=== PATIENT | male | born 1970 | race Caucasian/White ===

== ENCOUNTER 2017-02-18 19:38 | Emergency (ER) | payer OTHER ==
[~2017-02-18] VITALS: Ht 175.3 cm; Wt 85.0 kg
[2017-02-18 19:40] VITALS: Ht 175.3 cm; Wt 85.0 kg
[2017-02-18 20:40] LABS: BASOPHILS % 0.6 % (0.0-2.0); EOSINOPHILS # 0.1 10^3/ul (0.0-0.5); EOSINOPHILS % 2.1 % (0.0-7.0); HEMATOCRIT 40.2 % (42.0-52.0); HEMOGLOBIN 13.7 g/dl (14.0-18.0); LYMPHOCYTES % 30.7 % (15.0-51.0); MEAN CORPUSCULAR HEMOGLOBIN 30.6 pg (29.0-33.0); MEAN CORPUSCULAR HGB CONC 34.1 g/dl (32.0-37.0); MEAN CORPUSCULAR VOLUME 89.7 fl (82.0-101.0); MEAN PLATELET VOLUME 10.4 fl (7.4-10.4); MONOCYTE # 0.7 10^3/ul (0.3-0.9); MONOCYTES % 11.2 % (0.0-11.0); NEUTROPHIL # 3.6 10^3/ul (1.6-7.5); NEUTROPHILS % 54.8 % (39.0-77.0); PLATELET COUNT 203 10^3/UL (140-415); RED BLOOD COUNT 4.48 10^6/ul (4.70-6.10); RED CELL DISTRIBUTION WIDTH 12.3 % (11.5-14.5); WHITE BLOOD COUNT 6.5 10^3/ul (4.8-10.8)
[2017-02-18 20:56] LABS: ALANINE AMINOTRANSFERASE 27 IU/L (13-69); ALBUMIN 4.8 g/dl (3.3-4.9); ALBUMIN/GLOBULIN RATIO 2.18; ALKALINE PHOSPHATASE 61 IU/L (42-121); ANION GAP 13 (8-16); ASPARTATE AMINO TRANSFERASE 17 IU/L (15-46); BILIRUBIN,INDIRECT 0.2 mg/dl (0-1.1); BILIRUBIN,TOTAL 0.2 mg/dl (0.2-1.3); BLOOD UREA NITROGEN 18 mg/dl (7-20); CALCIUM 9.3 mg/dl (8.4-10.2); CARBON DIOXIDE 26 mmol/L (21-31); CHLORIDE 103 mmol/L (97-110); CREATININE 0.93 mg/dl (0.61-1.24); GLUCOSE 118 mg/dl (70-220); POTASSIUM 3.8 mmol/L (3.5-5.1); SODIUM 138 mmol/L (135-144)
[2017-02-18 20:58] LABS: ACETAMINOPHEN < 10.0 ug/ml (10.0-30.0); ETHANOL < 10.0 mg/dl; SALICYLATE < 1.0 mg/dl (5.0-30.0)
--- NOTE | 2017-02-18 21:00 | PSY ---
Date/Time of Note Date/Time of Note DATE: 02/18/17 TIME: 20:52 Psychiatric Subjective Eval Consent Pt consented to telemedicine: Yes Subjective Evaluation Patient location: emergency Chief Complaint: pt was attempting to jump off a 3rd story ledge when [employer] intervened Reason for consult: suicide attempt History of present illness Pt reports that he is anxious about potentially losing his housing in March. He attempted to jump off a ledge but was stopped by the police. He reports family have abandoned him, he only has one friend, he is very scared about the possibility of being homeless. Patient reports frequent hospitalizations. He reports paranoia/social phobia. He worries that people are laughing at him. He denies hallucinations. Patient does not feel safe out of the hospital. Past psychiatric history As noted above. Unclear diagnosis. However, he is on SSI Hospitalization: Suicidal Attempt(s) Family History Denies Medical history Denies Substance Abuse Substance use: No known substance abuse Social History Marital status: single Level of education: N/A DPA/Conservatorship: No Occupation/[facility]: Disabled Psychiatric Objective Eval Mental Status Examination: Appearance: Groomed Eye Contact: Poor Psychomotor Activity: Normal Behavior: Cooperative AFFECT: Anxious Mood: Anxious Though Process: Linear Thought Content: Normal Suicidal: Yes Homicidal: No On 72 hour hold: No Orientation: x4 Cognition: Alert Insight: Impared Judgement: Impared Laboratory Results Laboratory Tests Test 02/18/17 20:15 White Blood Count 6.510^3/ul Red Blood Count 4.4810^6/ul Hemoglobin 13.7g/dl Hematocrit 40.2% Mean Corpuscular Volume 89.7fl Mean Corpuscular Hemoglobin 30.6pg Mean Corpuscular Hemoglobin Concent 34.1g/dl Red Cell Distribution Width 12.3% Platelet Count 76373^3/UL Mean Platelet Volume 10.4fl Neutrophils % 54.8% Lymphocytes % 30.7% Monocytes % 11.2% Eosinophils % 2.1% Basophils % 0.6% Nucleated Red Blood Cells % 0.0/100WBC Neutrophils # 3.610^3/ul Lymphocytes # 2.010^3/ul Monocytes # 0.710^3/ul Eosinophils # 0.110^3/ul Basophils # 0.010^3/ul Nucleated Red Blood Cells # 0.010^3/ul Assessment and Plan Assessment/Diagnosis [place] [facility]: Unspecified Anxiety Disorder, Social Anxiety Disorder. Patient has a autistic spectrum disorder like presentation. This may be part of a psychotic disorder, high functioning autism, or severe anxiety. Likely combination of last two but difficult to tell in ER visit. He castrophizes - worried about homelessness in 2 months leads to jumping off a ledge. However, it may also be the only way he can get care. Recommendation/Plan Medication Management Can use Ativan 1mg for anxiety He appears anxious in the ER. Might help him calm. Consider 5mg of zyprexa if he is willing. Psychotherapy Support. Needs reassurance that he is going to taken care of. Pt. Caregiver/Family Education N/A Follow-up/Disposition 5150 and transfer to inpatient psychiatry. He will need psych social worker support to address his housing issue as he does not appear competent to do this by himself. 5152 Recommendation: Srini MCNEILEKATERINA Feb 18, 2017 21:00
[2017-02-18 21:25] LABS: ADD UMIC NO; UR ASCORBIC ACID NEGATIVE (NEGATIVE); UR BACTERIA FEW /HPF (NONE SEEN); UR BILIRUBIN (Dip) NEGATIVE (NEGATIVE); UR BLOOD (Dip) NEGATIVE (NEGATIVE); UR CLARITY SLIGHTLY CLOUDY (CLEAR); UR COLOR YELLOW (YELLOW); UR GLUCOSE (Dip) 1+ mg/dL (NEGATIVE); UR KETONES (Dip) NEGATIVE (NEGATIVE); UR LEUKOCYTE ESTERASE (Dip) NEGATIVE Leu/ul (NEGATIVE); UR MUCUS FEW /HPF (NONE SEEN); UR NITRITE (Dip) NEGATIVE (NEGATIVE); UR RBC 2 /HPF (0-5); UR SPECIFIC GRAVITY (Dip) 1.015 (1.003-1.030); UR TOTAL PROTEIN (Dip) NEGATIVE (NEGATIVE); UR UROBILINOGEN (Dip) NEGATIVE (NEGATIVE)
--- NOTE | 2017-02-18 21:26 | ERA ---
ER Documentation Chief Complaint Date/Time DATE: 02/18/17 TIME: 21:24 Chief Complaint pt was attempting to jump off a 3rd story ledge when [employer] intervened HPI Patient is a 46-year-old male with depression and prediabetes who presents with suicidal ideation. He was brought in by ambulance and police. The police had to stop him from jumping off of a 3 story building. He was getting ready to jump and feels depressed. He is concerned because he is at risk of being homeless. He says "I have no help". The patient says that he is on his own and has no car. He did see his psychiatrist yesterday. Upon review of old medical records this is the patient's first visit to the ER. ROS All systems reviewed and are negative except as per history of present illness. Allergies Allergies: Coded Allergies: No Known Allergy (Unverified , 02/18/17) PMhx/Soc Medical and Surgical Hx: pt denies Surgical Hx History of Surgery: No Anesthesia Reaction: No Hx Neurological Disorder: No Hx Respiratory Disorders: No Hx Cardiac Disorders: No Hx Psychiatric Problems: Yes (depression) Hx Miscellaneous Medical Probl: No Hx Alcohol Use: Yes Hx Substance Use: Yes Hx Tobacco Use: Yes Smoking Status: Current every day smoker FmHx Family History: diabetes Physical Exam Vitals Vital Signs Date Time Temp Pulse Resp B/P Pulse Ox O2 Delivery O2 Flow Rate FiO2 02/18/17 19:40 97.9 108 19 131/90 97 Physical Exam Const: Depressed affect with moderate distress Head: Atraumatic Eyes: Normal Conjunctiva ENT: Normal External Ears, Nose and Mouth. Neck: Full range of motion..~ No meningismus. Resp: Clear to auscultation bilaterally Cardio: Regular rate and rhythm, no murmurs Abd: Soft, non tender, non distended. Normal bowel sounds Skin: No petechiae or rashes Back: No midline or flank tenderness Ext: No cyanosis, or edema Neur: Awake and alert Psych: Depressed affect with positive suicidal ideation with plan to jump off of a building Result Diagram: 02/18/17201402/18/172014 Results 24 hrs Laboratory Tests Test 02/18/17 20:15 White Blood Count 6.510^3/ul Red Blood Count 4.4810^6/ul Hemoglobin 13.7g/dl Hematocrit 40.2% Mean Corpuscular Volume 89.7fl Mean Corpuscular Hemoglobin 30.6pg Mean Corpuscular Hemoglobin Concent 34.1g/dl Red Cell Distribution Width 12.3% Platelet Count 04846^3/UL Mean Platelet Volume 10.4fl Neutrophils % 54.8% Lymphocytes % 30.7% Monocytes % 11.2% Eosinophils % 2.1% Basophils % 0.6% Nucleated Red Blood Cells % 0.0/100WBC Neutrophils # 3.610^3/ul Lymphocytes # 2.010^3/ul Monocytes # 0.710^3/ul Eosinophils # 0.110^3/ul Basophils # 0.010^3/ul Nucleated Red Blood Cells # 0.010^3/ul Sodium Level 138mmol/L Potassium Level 3.8mmol/L Chloride Level 103mmol/L Carbon Dioxide Level 26mmol/L Anion Gap 13 Blood Urea Nitrogen 18mg/dl Creatinine 0.93mg/dl Glucose Level 118mg/dl Calcium Level 9.3mg/dl Total Bilirubin 0.2mg/dl Direct Bilirubin 0.00mg/dl Indirect Bilirubin 0.2mg/dl Aspartate Amino Transf (AST/SGOT) 17IU/L Alanine Aminotransferase (ALT/SGPT) 27IU/L Alkaline Phosphatase 61IU/L Total Protein 7.0g/dl Albumin 4.8g/dl Globulin 2.20g/dl Albumin/Globulin Ratio 2.18 Salicylates Level < 1.0mg/dl Acetaminophen Level < 10.0ug/ml Ethyl Alcohol Level < 10.0mg/dl Current Medications Medications (Trade) Dose Ordered Sig/Steve Route PRN Reason Start Time Stop Time Status Last Admin Dose Admin Lorazepam (Ativan) 1 mg ONCE ONCE PO 02/18/17 21:30 02/18/17 21:31 UNV Olanzapine (Zyprexa Zydis) 5 mg ONCE ONCE ODT 02/18/17 21:30 02/18/17 21:31 UNV Procedures/MDM Patient is a 46-year-old male presents with suicidal ideation and was planning to jump off of a 3 story ledge before the police stopped him. I do believe that he is a high risk for suicide and will require a 5150 hold. The patient was medically cleared with laboratory studies. The patient was seen by psychiatry who recommended a 5150 hold. I have given him Ativan and Zyprexa while he is here in the emergency department. He will need to be transferred for higher level of care as we do not have inpatient psychiatry here at the hospital. Critical Care: Time: 35 minutes excluding all billable procedures. Treatments/Evaluations: Close monitoring and treatment of unstable vital signs, cardiorespiratory, and neurologic status, while maintaining tight balance of fluid, respiratory, and cardiac interventions. Departure Diagnosis: Primary Impression: Suicidal ideation Condition: Serious MARICEL IVY MD Feb 18, 2017 21:26
[2017-02-18] MEDS ORDERED: LORAZEPAM 1 MG TAB PO ONE (21:30)
[2017-02-18] MEDS ORDERED: OLANZAPINE (ODT) 5 MG TAB ODT ONE (21:30)
[2017-02-18 21:38] LABS: BARBITURATES Negative (NEGATIVE); BENZODIAZEPINES Negative (NEGATIVE); CANNABINOIDS Negative (NEGATIVE); COCAINE Negative (NEGATIVE); OPIATES Negative (NEGATIVE)
[2017-02-18] MEDS ORDERED: METH500T50 PO (23:32)
[2017-02-18] MEDS ORDERED: DULO30CA47 PO (23:32)
[2017-02-18] MEDS ORDERED: FENO160T13 PO (23:32)
[2017-02-18] MEDS ORDERED: TERA2CAP3 PO (23:32)
[2017-02-18] MEDS ORDERED: HALO10TA PO (23:32)
[2017-02-18] MEDS ORDERED: LORA0.5T PO (23:32)
[2017-02-18] MEDS ORDERED: LEVO88TA3 PO (23:32)
[2017-02-18] MEDS ORDERED: ART2 PO (23:32)
[2017-02-18] MEDS ORDERED: CHOL100062 PO (23:32)
[2017-02-18] MEDS ORDERED: LANS30CA PO (23:32)
[2017-02-18] MEDS ORDERED: DULO60CA59 PO (23:32)
[2017-02-19 09:26] VITALS: BP 129/71; PULSE 87; RESP 20; TEMP 98.1
== END 2017-02-19 09:27 | disposition short-term general hospital (02) ==
LOC: E/R 19:38
DX: R45.851 Suicidal ideations (principal); F17.210 Nicotine dependence, cigarettes, uncomplicated
CPT/HCPCS: 36415; 80053; 80306; 80307; 81001; 81003; 85025